=== PATIENT | male | born 2000 | race Caucasian/White ===

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

== ENCOUNTER 2021-01-31 09:01 | Emergency (ER) | payer MEDICAID ==
[~2021-01-31] VITALS: Ht 175.3 cm; Wt 72.7 kg
[2021-01-31 09:08] VITALS: BP 131/83
[2021-01-31] MEDS ORDERED: ondansetron 4mg rapidly disintigrating tab PO ONE (09:15)
[2021-01-31] MEDS ORDERED: ONDA4TAB6 PO (09:16)
== END 2021-01-31 09:50 | disposition home or self-care (01) ==
LOC: ER 09:02
DX: R11.2 Nausea with vomiting, unspecified (principal); F12.90 Cannabis use, unspecified, uncomplicated; Z86.69 Personal history of other diseases of the nervous system and sense organs; Z72.89 Other problems related to lifestyle; Z79.899 Other long term (current) drug therapy
CPT/HCPCS: 99283

== ENCOUNTER 2022-03-01 22:50 | Emergency (ER) | payer MEDICAID ==
[~2022-03-01] VITALS: Ht 175.3 cm; Wt 70.0 kg
[~2022-03-01 22:50] MED LIST changes: +ONDA4TAB6 PO
[2022-03-01 23:25] VITALS: BP 100/52
== END 2022-03-02 00:10 | disposition left against medical advice (07) ==
LOC: ER 22:50
DX: K62.5 Hemorrhage of anus and rectum (principal); Z53.21 Procedure and treatment not carried out due to patient leaving prior to being seen by health care provider

== ENCOUNTER 2022-05-07 13:53 | Emergency (ER) | payer MEDICAID ==
[~2022-05-07] VITALS: Ht 175.3 cm; Wt 68.2 kg
[2022-05-07 14:09] VITALS: BP 102/35
--- NOTE | 2022-05-07 17:33 | NUR ---
Pt is not in his room, unable to locate the patient. NIDHI Garg notified that the patient appearts to have left without receiving crutches and a splint.
== END 2022-05-07 17:30 | disposition home or self-care (01) ==
LOC: ER 13:54
DX: M25.571 Pain in right ankle and joints of right foot (principal); Z79.899 Other long term (current) drug therapy
CPT/HCPCS: 73610; 99283

== ENCOUNTER 2022-11-15 03:57 | Emergency (ER) | payer MEDICAID ==
[~2022-11-15] VITALS: Ht 175.3 cm; Wt 68.2 kg
[2022-11-15 04:02] VITALS: BP 134/55; PULSE 77; RESP 16; TEMP 97.8; O2SAT 97
== END 2022-11-15 05:13 | disposition left against medical advice (07) ==
LOC: ER 03:58
DX: M25.571 Pain in right ankle and joints of right foot (principal); Z53.21 Procedure and treatment not carried out due to patient leaving prior to being seen by health care provider
CPT/HCPCS: 73610; 73630; 99281

== ENCOUNTER 2023-10-03 20:30 | Emergency (ER) | payer MEDICAID ==
[~2023-10-03] VITALS: Ht 175.3 cm; Wt 63.6 kg
[2023-10-03 20:35] VITALS: BP 120/98; PULSE 128; RESP 20; TEMP 98.7; O2SAT 99
== END 2023-10-03 21:17 ==
LOC: ER 20:31
DX: R20.0 Anesthesia of skin (principal); T65.891A Toxic effect of other specified substances, accidental (unintentional), initial encounter; F12.90 Cannabis use, unspecified, uncomplicated; Z79.899 Other long term (current) drug therapy; Y92.89 Other specified places as the place of occurrence of the external cause
CPT/HCPCS: 99283

== ENCOUNTER 2023-12-12 19:18 | Emergency (ER) | payer MEDICAID ==
[~2023-12-12] VITALS: Ht 175.3 cm; Wt 75.1 kg
[2023-12-12 20:58] VITALS: BP 144/69; PULSE 102; RESP 18; O2SAT 97
== END 2023-12-12 21:01 | disposition home or self-care (01) ==
LOC: ER 19:18
DX: T40.2X1A Poisoning by other opioids, accidental (unintentional), initial encounter (principal); F12.90 Cannabis use, unspecified, uncomplicated; Y92.89 Other specified places as the place of occurrence of the external cause
CPT/HCPCS: 99283